=== PATIENT | female | born 1955 | race Caucasian/White ===

== ENCOUNTER 2022-03-14 14:39 | Inpatient (IN) | payer MEDICARE, MEDICAID ==
[2022-03-14 16:58] VITALS: BMI 16.8
[2022-03-14] MEDS ORDERED: Albuterol Sulfate 1.25 MG/3 ML NEB NEB PRN (18:01)
[2022-03-14] MEDS ORDERED: Guaifenesin DM 100-10/5 ML UDCUP PO PRN (18:26)
[2022-03-14] MEDS ORDERED: Docusate 100 MG CAP PO PRN (18:29)
[2022-03-14] MEDS: Budesonide 0.5 MG/2 ML NEB NEB SCH (20:10)
[2022-03-14] MEDS: Arformoterol 15 MCG/2 ML NEB NEB SCH (20:10)
[2022-03-14] MEDS ORDERED: Magnesium 2 GM/50 ML(in water) 2 GM in Premix Bag 1 BAG IVPB SCH (20:30)
[2022-03-14 20:34] LABS: Actual Bicarbonate (HCO3a) 33.8 mEq/L (22-28); Base Excess (BEa) 8.4 mEq/L (-2.0 to +3.0); CO2 Tension 50.8 mmHg (35.0-45.0); Calcium, Ionized (arterial) 1.15 mmol/L (1.12-1.30); Carboxyhemoglobin (COHb) 0.3 gm% (0.0-3.0); Hemoglobin (Hb) 11.9 g/dL (12.0-16.0); O2 Tension (PaO2), arterial 184.8 mmHg (> 80.0); Potassium - ABG Lab 4.2 mmol/L (3.70-5.30); Puncture Site RRA; pH, Arterial 7.44 (7.35-7.45)
[2022-03-14] MEDS: methylPREDNISolone Sod Succ 40 MG VIAL IVP SCH (20:35)
[2022-03-14] MEDS: Carvedilol 3.125 MG TAB PO SCH (21:44)
[2022-03-14] MEDS: Montelukast Sodium 10 mg Tablet PO SCH (21:44)
[2022-03-14] MEDS: Atorvastatin Calcium 40 MG TAB PO SCH (21:44)
[2022-03-15 04:42] LABS: #Monocytes 0.3 10x3/uL (0.0-1.1); #Neutrophils 4.9 10x3/uL (1.5-8.4); %Basophils 0.2 % (0.0-2.0); %Lymphocytes 3.5 % (18.0-47.0); %Monocytes 5.5 % (0.0-10.0); %Neutrophils 90.6 % (40.0-75.0); Hemoglobin 11.2 g/dL (12.0-15.5); Mean Corpuscular Hemoglobin 32.9 pg (27.0-33.0); Mean Corpuscular Volume 94.1 fl (81.6-98.3); Mean Platelet Volume 10.6 fl (7.4-10.4); Platelet Count 190 10x3/uL (150-450); RBC Distribution Width 11.9 % (11.5-14.5); White Blood Cell (WBC) Count 5.4 10x3/uL (3.5-10.5)
[2022-03-15 04:56] LABS: Anion Gap 11 mmol/L (10-20); BUN (Urea Nitrogen) 9 mg/dL (9.8-20.1); Calc. Creatinine Clearance 86 mL/min (70-130); Carbon Dioxide 28 mmol/L (23-31); Chloride 93 mmol/L (98-107); Estimated GFR 106; Glucose 128 mg/dL (80-115); Sodium 128 mmol/L (136-145)
[2022-03-15] MEDS: Arformoterol 15 MCG/2 ML NEB NEB SCH ×2 (07:16→19:30)
[2022-03-15] MEDS: Budesonide 0.5 MG/2 ML NEB NEB SCH ×2 (07:16→19:30)
[2022-03-15] MEDS: Acetaminophen 325 MG TAB PO PRN ×2 (08:27→16:52)
[2022-03-15] MEDS: Aspirin 81 mg Enteric Coated Tablet PO SCH (08:28)
[2022-03-15] MEDS: Carvedilol 3.125 MG TAB PO SCH ×2 (08:28→20:38)
[2022-03-15] MEDS: methylPREDNISolone Sod Succ 40 MG VIAL IVP SCH ×2 (08:28→20:38)
[2022-03-15] MEDS ORDERED: Sodium Chloride 0.9% 1,000 ML IV SCH (12:00)
[2022-03-15] MEDS: Atorvastatin Calcium 40 MG TAB PO SCH (20:38)
[2022-03-15] MEDS: Montelukast Sodium 10 mg Tablet PO SCH (20:39)
[2022-03-16] MEDS: Carvedilol 3.125 MG TAB PO SCH ×3 (02:05→21:26)
[2022-03-16 04:34] LABS: Hemoglobin 11.3 g/dL (12.0-15.5); Mean Corpuscular HGB CONC 34.9 g/dL (32.0-36.0); Mean Corpuscular Hemoglobin 33.3 pg (27.0-33.0); Mean Corpuscular Volume 95.6 fl (81.6-98.3); Mean Platelet Volume 10.2 fl (7.4-10.4); Platelet Count 213 10x3/uL (150-450); RBC Distribution Width 11.9 % (11.5-14.5); Red Blood Cell (RBC) Count 3.39 10x6/uL (3.90-5.03); White Blood Cell (WBC) Count 5.2 10x3/uL (3.5-10.5)
[2022-03-16 04:55] LABS: MDiff Complete? YES
[2022-03-16 05:02] LABS: Anion Gap 11 mmol/L (10-20); BUN (Urea Nitrogen) 11 mg/dL (9.8-20.1); Calc. Creatinine Clearance 86 mL/min (70-130); Calcium 8.4 mg/dL (7.8-10.44); Carbon Dioxide 26 mmol/L (23-31); Chloride 94 mmol/L (98-107); Estimated GFR 106; Glucose 146 mg/dL (80-115); Potassium 4.2 mmol/L (3.5-5.1); Sodium 127 mmol/L (136-145)
[2022-03-16 05:25] LABS: Band 8 % (5-11); Lymphocytes 3 % (21-51); Monocytes 3 % (0-10); Neutrophil 86 % (42-75)
[2022-03-16 05:28] LABS: Large Platelets SLIGHT; Platelet Clumps SLIGHT; Platelet Morphology Comment PLT clumps seen-ADEQ; RBC Morphology Normal
[2022-03-16] MEDS: Arformoterol 15 MCG/2 ML NEB NEB SCH ×2 (06:55→18:45)
[2022-03-16] MEDS: Budesonide 0.5 MG/2 ML NEB NEB SCH ×2 (06:55→18:45)
[2022-03-16 08:19] LABS: Cholesterol 142 mg/dl (< 200 Desired); HDL Cholesterol 70 mg/dL (>60 Neg Risk); LDL Cholesterol, Calculated 64 mg/dL; Magnesium 1.7 mg/dL (1.6-2.6); Phosphorus 3.6 mg/dL (2.3-4.7); Triglycerides 38 mg/dL (Less than 150)
[2022-03-16] MEDS: methylPREDNISolone Sod Succ 40 MG VIAL IVP SCH ×2 (09:43→21:27)
[2022-03-16] MEDS: Aspirin 81 mg Enteric Coated Tablet PO SCH (09:43)
[2022-03-16] MEDS: Acetaminophen 325 MG TAB PO PRN ×2 (09:43→21:30)
[2022-03-16] MEDS ORDERED: Sodium Chloride 0.65% Nasal 44 ML BOT EA NARE PRN (10:50)
[2022-03-16] MEDS ORDERED: Diclofenac 1% 100 GM GEL TP PRN (10:50)
[2022-03-16] MEDS ORDERED: Ondansetron ODT 4 MG TAB PO PRN (10:50)
[2022-03-16] MEDS ORDERED: Acetaminophen 500 MG TAB PO PRN (10:50)
[2022-03-16] MEDS ORDERED: Moisturizing Cream (Eucerin) 113 GM JAR TOP PRN (10:50)
[2022-03-16] MEDS ORDERED: Artificial Tear Sol 15 ML BOT EA EYE PRN (10:50)
[2022-03-16] MEDS: Atorvastatin Calcium 40 MG TAB PO SCH (21:25)
[2022-03-16] MEDS: Montelukast Sodium 10 mg Tablet PO SCH (21:26)
[2022-03-17 05:02] LABS: Hemoglobin 11.4 g/dL (12.0-15.5); Mean Corpuscular Volume 97.1 fl (81.6-98.3); Mean Platelet Volume 10.7 fl (7.4-10.4); Platelet Count 259 10x3/uL (150-450); RBC Distribution Width 11.9 % (11.5-14.5); Red Blood Cell (RBC) Count 3.45 10x6/uL (3.90-5.03); White Blood Cell (WBC) Count 4.3 10x3/uL (3.5-10.5)
[2022-03-17 05:04] LABS: Anion Gap 11 mmol/L (10-20); BUN (Urea Nitrogen) 13 mg/dL (9.8-20.1); Calc. Creatinine Clearance 82 mL/min (70-130); Calcium 8.5 mg/dL (7.8-10.44); Carbon Dioxide 30 mmol/L (23-31); Chloride 95 mmol/L (98-107); Estimated GFR 105; Glucose 135 mg/dL (80-115); Sodium 132 mmol/L (136-145)
[2022-03-17 05:11] LABS: MDiff Complete? YES
[2022-03-17] MEDS: Arformoterol 15 MCG/2 ML NEB NEB SCH ×2 (05:32→19:22)
[2022-03-17] MEDS: Budesonide 0.5 MG/2 ML NEB NEB SCH ×2 (05:32→19:23)
[2022-03-17 05:41] LABS: Band 5 % (5-11); Lymphocytes 2 % (21-51); Monocytes 6 % (0-10); Neutrophil 87 % (42-75)
[2022-03-17 05:42] LABS: Platelet Clumps SLIGHT
[2022-03-17 05:43] LABS: Platelet Morphology Comment Appears Adequate; RBC Morphology Normal
[2022-03-17] MEDS: methylPREDNISolone Sod Succ 40 MG VIAL IVP SCH (10:05)
[2022-03-17] MEDS: Aspirin 81 mg Enteric Coated Tablet PO SCH (10:06)
[2022-03-17] MEDS: Carvedilol 3.125 MG TAB PO SCH ×2 (10:06→22:38)
[2022-03-17] MEDS ORDERED: Electrolyte Replacement Protocol 1 EACH FS SCH (14:00)
[2022-03-17] MEDS ORDERED: Magnesium 2 GM/50 ML(in water) 2 GM in Premix Bag 1 BAG IVPB SCH (17:30)
[2022-03-17] MEDS: Atorvastatin Calcium 40 MG TAB PO SCH (22:38)
[2022-03-17] MEDS: Montelukast Sodium 10 mg Tablet PO SCH (22:38)
[2022-03-17] MEDS: Acetaminophen 325 MG TAB PO PRN (22:42)
[2022-03-18 04:29] LABS: Magnesium 2.2 mg/dL (1.6-2.6)
[2022-03-18] MEDS: methylPREDNISolone Sod Succ 40 MG VIAL IVP SCH (07:06)
[2022-03-18] MEDS: Budesonide 0.5 MG/2 ML NEB NEB SCH ×2 (07:30→18:55)
[2022-03-18] MEDS: Arformoterol 15 MCG/2 ML NEB NEB SCH ×2 (07:30→19:00)
[2022-03-18 09:40] LABS: Anion Gap 10 mmol/L (10-20); BUN (Urea Nitrogen) 12 mg/dL (9.8-20.1); Calc. Creatinine Clearance 76 mL/min (70-130); Calcium 8.5 mg/dL (7.8-10.44); Carbon Dioxide 35 mmol/L (23-31); Chloride 92 mmol/L (98-107); Estimated GFR 103; Glucose 89 mg/dL (80-115); Potassium 3.5 mmol/L (3.5-5.1); Sodium 133 mmol/L (136-145)
[2022-03-18] MEDS ORDERED: Potassium Chloride 20 MEQ TAB PO SCH (10:00)
[2022-03-18] MEDS: Carvedilol 3.125 MG TAB PO SCH ×2 (10:27→20:24)
[2022-03-18] MEDS: Aspirin 81 mg Enteric Coated Tablet PO SCH (10:27)
[2022-03-18 15:54] LABS: Potassium 4.6 mmol/L (3.5-5.1)
[2022-03-18] MEDS: Montelukast Sodium 10 mg Tablet PO SCH (20:24)
[2022-03-18] MEDS: Atorvastatin Calcium 40 MG TAB PO SCH (20:24)
[2022-03-18] MEDS: Acetaminophen 325 MG TAB PO PRN (20:39)
[2022-03-19] MEDS: Budesonide 0.5 MG/2 ML NEB NEB SCH ×2 (06:50→19:05)
[2022-03-19] MEDS: Arformoterol 15 MCG/2 ML NEB NEB SCH ×2 (07:05→19:15)
[2022-03-19] MEDS: methylPREDNISolone Sod Succ 40 MG VIAL IVP SCH (08:24)
[2022-03-19] MEDS: Aspirin 81 mg Enteric Coated Tablet PO SCH (08:24)
[2022-03-19] MEDS: Carvedilol 3.125 MG TAB PO SCH ×2 (08:25→20:23)
[2022-03-19 09:45] LABS: Anion Gap 15 mmol/L (10-20); BUN (Urea Nitrogen) 12 mg/dL (9.8-20.1); Calc. Creatinine Clearance 72 mL/min (70-130); Carbon Dioxide 32 mmol/L (23-31); Chloride 91 mmol/L (98-107); Estimated GFR 102; Glucose 83 mg/dL (80-115); Potassium 3.9 mmol/L (3.5-5.1); Sodium 134 mmol/L (136-145)
[2022-03-19] MEDS: Montelukast Sodium 10 mg Tablet PO SCH (20:23)
[2022-03-19] MEDS: Atorvastatin Calcium 40 MG TAB PO SCH (20:23)
[2022-03-20] MEDS: Budesonide 0.5 MG/2 ML NEB NEB SCH ×2 (07:30→19:25)
[2022-03-20] MEDS: Arformoterol 15 MCG/2 ML NEB NEB SCH ×2 (07:30→19:35)
[2022-03-20 09:21] LABS: Anion Gap 13 mmol/L (10-20); BUN (Urea Nitrogen) 10 mg/dL (9.8-20.1); Calc. Creatinine Clearance 84 mL/min (70-130); Calcium 8.8 mg/dL (7.8-10.44); Carbon Dioxide 30 mmol/L (23-31); Chloride 91 mmol/L (98-107); Estimated GFR 106; Glucose 83 mg/dL (80-115); Potassium 3.7 mmol/L (3.5-5.1); Sodium 130 mmol/L (136-145)
[2022-03-20] MEDS: Thiamine 100 MG TAB PO SCH (09:57)
[2022-03-20] MEDS: Folic Acid 1 MG TAB PO SCH (09:57)
[2022-03-20] MEDS: Aspirin 81 mg Enteric Coated Tablet PO SCH (09:58)
[2022-03-20] MEDS: Carvedilol 3.125 MG TAB PO SCH ×2 (09:58→21:04)
[2022-03-20] MEDS: Atorvastatin Calcium 40 MG TAB PO SCH (21:04)
[2022-03-20] MEDS: Montelukast Sodium 10 mg Tablet PO SCH (21:04)
[2022-03-21] MEDS: Arformoterol 15 MCG/2 ML NEB NEB SCH ×2 (07:06→20:35)
[2022-03-21] MEDS: Budesonide 0.5 MG/2 ML NEB NEB SCH ×2 (07:10→20:25)
[2022-03-21] MEDS: Folic Acid 1 MG TAB PO SCH (08:11)
[2022-03-21] MEDS: Thiamine 100 MG TAB PO SCH (08:11)
[2022-03-21] MEDS: Carvedilol 3.125 MG TAB PO SCH ×2 (08:11→20:52)
[2022-03-21] MEDS: Aspirin 81 mg Enteric Coated Tablet PO SCH (08:11)
[2022-03-21 09:59] LABS: Anion Gap 12 mmol/L (10-20); BUN (Urea Nitrogen) 13 mg/dL (9.8-20.1); Calc. Creatinine Clearance 80 mL/min (70-130); Calcium 8.7 mg/dL (7.8-10.44); Carbon Dioxide 31 mmol/L (23-31); Chloride 91 mmol/L (98-107); Estimated GFR 105; Glucose 93 mg/dL (80-115); Potassium 3.9 mmol/L (3.5-5.1); Sodium 130 mmol/L (136-145)
[2022-03-21] MEDS: Atorvastatin Calcium 40 MG TAB PO SCH (20:52)
[2022-03-21] MEDS: Montelukast Sodium 10 mg Tablet PO SCH (20:52)
[2022-03-22] MEDS: Budesonide 0.5 MG/2 ML NEB NEB SCH (08:00)
[2022-03-22] MEDS: Arformoterol 15 MCG/2 ML NEB NEB SCH (08:00)
[2022-03-22 09:13] LABS: Anion Gap 10 mmol/L (10-20); BUN (Urea Nitrogen) 7 mg/dL (9.8-20.1); Calc. Creatinine Clearance 84 mL/min (70-130); Calcium 8.6 mg/dL (7.8-10.44); Carbon Dioxide 32 mmol/L (23-31); Chloride 92 mmol/L (98-107); Estimated GFR 106; Glucose 83 mg/dL (80-115); Potassium 3.6 mmol/L (3.5-5.1); Sodium 130 mmol/L (136-145)
[2022-03-22] MEDS: Carvedilol 3.125 MG TAB PO SCH (09:19)
[2022-03-22] MEDS: Thiamine 100 MG TAB PO SCH (09:19)
[2022-03-22] MEDS: Aspirin 81 mg Enteric Coated Tablet PO SCH (09:19)
[2022-03-22] MEDS: Folic Acid 1 MG TAB PO SCH (09:19)
[2022-03-22 17:01] VITALS: BP 99/54; TEMP 97.6
== END 2022-03-22 17:50 | DRG 190 ==
LOC: UNDOADMOB 14:39 → CSHTELE 14:39 → INTOOBSV 14:39 → CSHTELE 17:56 → OBSVTOIN 03-16 10:13
PROVIDERS: ADMIT Internal Medicine; ATTEND Family Medicine
DX: J44.1 Chronic obstructive pulmonary disease with (acute) exacerbation (principal); J96.21 Acute and chronic respiratory failure with hypoxia; E87.1 Hypo-osmolality and hyponatremia; E78.5 Hyperlipidemia, unspecified; Z20.822 Contact with and (suspected) exposure to COVID-19; Z99.81 Dependence on supplemental oxygen; Z51.5 Encounter for palliative care; Z79.51 Long term (current) use of inhaled steroids; Z79.899 Other long term (current) drug therapy; Z79.82 Long term (current) use of aspirin; Z86.73 Personal history of transient ischemic attack (TIA), and cerebral infarction without residual deficits
CPT/HCPCS: 36415; 36416; 36600; 74230; 80048; 80061; 82805; 83735; 84100; 84300; 84443; 85025; 94640; 94760; 96374; 96375; 96376; G0378; J1956; J2920; J3475; J7050; J7620; J7626